=== PATIENT | female | born 1960 | race Caucasian/White ===

== ENCOUNTER 2017-09-23 02:17 | Inpatient (IN) | payer OTHER ==
[~2017-09-23] VITALS: Ht 152.4 cm; Wt 65.8 kg
[~2017-09-23 02:17] MED LIST: FISH OIL 1,001000 M2; FLEXERIL PO; IBUPROFEN 800800 M1 PO; PERCOCET 5-3251 EACH PO; PREDNISONE50 MG PO; SYNTHROID125 MC1 PO; VASOTEC20 MG PO
[2017-09-23 02:27] VITALS: BP 114/72
[2017-09-23 02:39] LABS: URINE BILIRUBIN NEGATIVE (Negative); URINE BLOOD 3+ (Negative); URINE CLARITY CLOUDY; URINE COLOR DARK YELLOW; URINE GLUCOSE-RANDOM NEGATIVE (Negative); URINE KETONES NEGATIVE (Negative); URINE LEUKOCYTES-REFLEX TRACE (Negative); URINE NITRITE-REFLEX NEGATIVE (Negative); URINE PROTEIN 1+ (Negative); URINE SPECIFIC GRAVITY >= 1.030 (1.005-1.030); URINE UROBILINOGEN 0.2 E.U./dl (0.2-1.0)
[2017-09-23 02:47] LABS: ABSOLUTE EOSINOPHILS 0.2 thou/uL (0.0-0.7); ABSOLUTE LYMPHOCYTES 3.1 thou/uL (0.8-5.3); ABSOLUTE MONOCYTES 0.4 thou/uL (0.0-1.2); ABSOLUTE NEUTROPHILS 2.3 thou/uL (1.6-8.1); BASOPHILS 0.7 %; EOSINOPHILS 2.7 %; HEMATOCRIT 43.3 % (37.0-47.0); HEMOGLOBIN 14.7 gm/dL (12.0-15.0); LYMPHOCYTES 51.3 %; MCHC 33.9 g/dL (28.0-37.0); MCV 91.2 fL (80.0-100.0); MONOCYTES 6.3 %; MPV 8.2 fl. (7.2-11.1); NUCLEATED RBCS 0 /100WBC; PLATELET COUNT* 235 thou/uL (150-400); RBC 4.75 mil/uL (4.20-5.00); RDW-CV 13.2 % (10.5-14.5)
[2017-09-23 02:51] LABS: ANION GAP 9 mmol/L (7-16); BUN 18 mg/dL (7-18); CALCIUM 8.7 mg/dL (8.5-10.1); CHLORIDE 101 mmol/L (98-107); CO2 30 mmol/L (21-32); CREATININE 1.1 mg/dL (0.6-1.3); GLUCOSE 108 mg/dL (70-99); SODIUM 140 mmol/L (136-145)
[2017-09-23 02:58] LABS: ALKALINE PHOSPHATASE 76 U/L (46-116); LIPASE 145 U/L (73-393); SGPT 24 U/L (30-65); TOTAL BILIRUBIN 0.8 mg/dL (<0.1-1.0); TOTAL PROTEIN 7.9 g/dL (6.4-8.2); TROPONIN-I LEVEL <0.06 ng/mL (<0.06)
[2017-09-23 02:59] LABS: POTASSIUM 4.8 mmol/L (3.5-5.1)
[2017-09-23 03:00] LABS: SGOT 48 U/L (15-37)
[2017-09-23 03:26] LABS: CASTS None Seen /LPF (None Seen); SQUAMOUS >10 Many /LPF (0-3)
[2017-09-23 03:27] LABS: BACTERIA-REFLEX >30 Many /HPF (None Seen); CRYSTALS None Seen /LPF (None Seen); URINE RBC >20 Many /HPF (0-2); URINE WBC-REFLEX 6-15 Few /HPF (0-5)
[2017-09-23 04:53] VITALS: BP 134/61
--- NOTE | 2017-09-23 04:55 | NUR ---
PT ADMITTED TO FLOOR PER CART ACCOMPANIED BY ER STAFF WITH BELONGINGS. ORIENTED TO ROOM AND CALL LITE. PT DROWSY BUT ORIENTED X4, HISTORY OBTAINED AND ASSESSMENT PERFORMED. PT STATES PAIN 4/10 AT PRESENT AND STARTING TO CLIMB, BECOMING RESTLESS IN BED WHILE ASSESSMENT PERFORMED, NAUSEA BRIEFLY WITHOUT EMESIS. TOO SOON FOR PAIN MED, WILL CONTINUE TO MONITOR. O2 2L 100% SAT. CALL LITE IN EASY REACH, IVF PLACED ON PUMP FOR INFUSION LAC. BED ALARM ON FOR SAFETY DUE TO PT DROWSINESS.
[2017-09-23 05:40] VITALS: BP 148/79
--- NOTE | 2017-09-23 07:55 | NUR ---
NEW ADMIT THIS SHIFT, PT SLEPT FOR AWHILE AFTER SETTLING IN AFTER MIDNIGHT AWAKENED THIS MORNING WITH PRETTY SUDDEN ONSET 9/10 L FLANK PAIN AND NAUSEA. DR LONG NOTIFIED AND ORDERS RECEIVED FOR ONE TIME DOSE DILAUDID 0.5MG IV WITH ZOFRAN-GIVEN. LAC IVF INFUSING PER PUMP. UP WITH ASSIST TO BSC TO VOID, URINE STRAINED. CALL LITE IN EASY REACH, BED ALARM ON FOR SAFETY AFTER IV PAIN MEDS GIVEN. O2 2L NC.UROLOGY TO CONSULT TODAY.
[2017-09-23 08:00] VITALS: BP 122/64
--- NOTE | 2017-09-23 13:29 | EKG ---
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 : 1960 Requested By: Willie Day Order Number: [id number] MD: Johnny Irizarry Measurements Intervals [place] Rate: 50 P: 52 [place]: 175 QRS: 65 QRSD: 102 T: 15 QT: 458 QTc: 418 Interpretive Statements Sinus arrhythmia Baseline wander in lead(s) V1,V2 No previous ECG available for comparison Electronically Signed On 09-23-2017 13:29:03 CDT by Johnny Irizarry [email or web address] <ELECTRONICALLY SIGNED> By: Kath Irizarry MD, [facility] 09/23/17 1329 025 0 Kath Irizarry MD, [facility] /EPI
[2017-09-23 16:21] VITALS: BP 128/57
--- NOTE | 2017-09-23 19:43 | NUR ---
ASSUMED CARE THIS AM. PAIN/NAUSEA FINALLY CONTROLLED WITH IV MEDICATION AND REST. PATIENT RESTED COMFORTABLY MOST OF THE AFTERNOON, AT BEDSIDE. PATIENT DID TOLERATE SUPPER WITHOUT EMESIS AND NAUSEA. NEIL IVF AND ABT WITHOUT INCIDENT, NPO AFTER MIDNIGHT, WILL CONT POC TOWARD D/C GOALS, URINE STRAINED.
[2017-09-23 20:30] VITALS: BP 103/59
[2017-09-24 00:05] VITALS: BP 110/62
[2017-09-24 04:16] VITALS: BP 114/60
--- NOTE | 2017-09-24 06:07 | NUR ---
PT HAD GOOD NIGHTS SLEEP SHE STATES, RECEIVED TORADOL AT START OF SHIFT FOR MILD L FLANK PAIN 2/10 WITH GOOD RESULT AND WAS ABLE TO SLEEP UNTIL AWAKENED WITH PAIN 5/10 L FLANK AT 0330. 1 MG DILAUDID GIVEN IV WITH GOOD RESULT. O2 SAT 89% AFTER DILAUDID, O2 2L PLACED ON PT. UP TO BR TO VOID, STRAINING URINE WITH NO STONE SEEN. HAS BEEN NPO SINCE MIDNIGHT IN CASE UROLOGIC PROCEDURE NEEDED. LAC IVF INFUSING PER PUMP, ABX TO BE GIVEN ORDERED. ABLE TO USE CALL LITE AND MAKE NEEDS KNOWN. NO LABS THIS MORNING, TO HAVE KUB TODAY. TELE SB/SR, VSS.
[2017-09-24 08:00] VITALS: BP 121/54
[2017-09-24 08:15] LABS: CALCIUM 7.9 mg/dL (8.5-10.1); CREATININE 1.8 mg/dL (0.6-1.3); POTASSIUM 4.5 mmol/L (3.5-5.1)
--- NOTE | 2017-09-24 10:40 | NUR ---
SW met with pt to complete initial assessment, introduce self and SW role. Pt alert and oriented. Pt name actually "Melvi". Pt lives at home with her . Pt was out of town on business but flew back to be with pt. Pt does not anticipate any dc needs except maybe help with coordinating OP appt by mobile clinic or "truck" if that is what is recommended. SW to continue to follow to assist with safe dc planning.
[2017-09-24] MEDS ORDERED: TAMSULOSIN HCL0.4 MG PO (12:08)
[2017-09-24] MEDS ORDERED: TRANSDERM-SCOP1 EACH TRANSDERM (12:13)
[2017-09-24] MEDS ORDERED: NORCO 5-325 TA1 EACH PO (12:14)
[2017-09-24] MEDS ORDERED: LIDODERM1 EACH TRANSDERM (12:16)
[2017-09-24 12:20] VITALS: BP 112/58
--- NOTE | 2017-09-24 17:58 | EKG ---
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 : 1960 Requested By: Clay Jerry Order Number: [id number] Reading MD: Anish Adkins Measurements Intervals [place] Rate: 51 P: 22 [place]: 155 QRS: 66 QRSD: 96 T: -9 QT: 430 QTc: 397 Interpretive Statements Sinus rhythm Borderline T abnormalities, inferior leads Compared to ECG 09/23/2017 02:51:14 T-wave abnormality now present Sinus arrhythmia no longer present Electronically Signed On 09-24-2017 17:58:34 CDT by Anish Adkins [email or web address] <ELECTRONICALLY SIGNED> By: Anish Adkins MD, FACC 09/24/17 1758 0949 0949 Anish Adkins MD, FAC /EPI
[2017-09-25] MEDS ORDERED: BACTRIM DS TAB1 EACH (19:03)
[2017-09-25] MEDS ORDERED: PROAIR HFA8.5 GM INH (21:18)
[2017-09-25] MEDS ORDERED: AZITHROMYCIN 2250 MG PO (21:18)
[2017-09-25] MEDS ORDERED: DIFLUCAN150 MG PO (21:18)
== END 2017-09-24 17:29 | disposition home or self-care (01) | DRG 694 ==
LOC: M.ERS 02:17 → M.3W 04:17 → M.TBA-ER 04:17 → M.3W 04:56
PROVIDERS: Emergency Medicine Emergency Medical Services; Urology; ADMIT Family Medicine
DX: N20.2 Calculus of kidney with calculus of ureter (principal); I10 Essential (primary) hypertension; E03.9 Hypothyroidism, unspecified; J45.909 Unspecified asthma, uncomplicated; Z79.899 Other long term (current) drug therapy

== ENCOUNTER 2017-09-25 18:43 | Emergency (ER) | payer OTHER ==
[~2017-09-25] VITALS: Ht 154.9 cm; Wt 59.0 kg
[~2017-09-25 18:43] MED LIST changes: +LIDODERM1 EACH TRANSDERM; +NORCO 5-325 TA1 EACH PO; +TAMSULOSIN HCL0.4 MG PO; +TRANSDERM-SCOP1 EACH TRANSDERM
[2017-09-25] MEDS ORDERED: BACTRIM DS TAB1 EACH (19:03)
[2017-09-25 19:36] LABS: URINE BILIRUBIN NEGATIVE (Negative); URINE BLOOD 3+ (Negative); URINE CLARITY CLEAR; URINE COLOR YELLOW; URINE GLUCOSE-RANDOM NEGATIVE (Negative); URINE KETONES NEGATIVE (Negative); URINE LEUKOCYTES-REFLEX NEGATIVE (Negative); URINE NITRITE-REFLEX NEGATIVE (Negative); URINE PROTEIN NEGATIVE (Negative); URINE SPECIFIC GRAVITY 1.015 (1.005-1.030); URINE UROBILINOGEN 0.2 E.U./dl (0.2-1.0)
[2017-09-25 19:43] LABS: ABSOLUTE EOSINOPHILS 0.1 thou/uL (0.0-0.7); ABSOLUTE LYMPHOCYTES 1.8 thou/uL (0.8-5.3); ABSOLUTE MONOCYTES 0.4 thou/uL (0.0-1.2); ABSOLUTE NEUTROPHILS 3.1 thou/uL (1.6-8.1); BASOPHILS 0.5 %; EOSINOPHILS 2.3 %; LYMPHOCYTES 32.9 %; MCH 31.5 pg (26.0-34.0); MCHC 34.9 g/dL (28.0-37.0); MCV 90.2 fL (80.0-100.0); MONOCYTES 7.4 %; NUCLEATED RBCS 0 /100WBC; PLATELET COUNT* 178 thou/uL (150-400); POLYS 56.9 %; RBC 3.77 mil/uL (4.20-5.00); RDW-CV 12.8 % (10.5-14.5); WBC 5.5 thou/uL (4.0-11.0)
[2017-09-25 19:44] LABS: SQUAMOUS >10 Many /LPF (0-3)
[2017-09-25 19:45] LABS: BACTERIA-REFLEX 1-9 Few /HPF (None Seen); CRYSTALS None Seen /LPF (None Seen); MUCUS None Seen strn/LPF (None Seen)
[2017-09-25 19:46] LABS: CASTS None Seen /LPF (None Seen); URINE WBC-REFLEX 0-5 Rare /HPF (0-5)
[2017-09-25 19:52] LABS: HEMOGLOBIN 11.9 gm/dL (12.0-15.0)
[2017-09-25 19:54] LABS: CALCIUM 8.4 mg/dL (8.5-10.1); CREATININE 1.1 mg/dL (0.6-1.3); POTASSIUM 3.7 mmol/L (3.5-5.1)
[2017-09-25 19:59] LABS: ALBUMIN 2.8 g/dL (3.4-5.0); TOTAL BILIRUBIN 0.4 mg/dL (<0.1-1.0); TOTAL PROTEIN 5.8 g/dL (6.4-8.2)
[2017-09-25] MEDS ORDERED: AZITHROMYCIN 2250 MG PO (21:18)
[2017-09-25] MEDS ORDERED: DIFLUCAN150 MG PO (21:18)
[2017-09-25] MEDS ORDERED: PROAIR HFA8.5 GM INH (21:18)
[2017-09-25 21:40] VITALS: BP 151/50
== END 2017-09-25 21:40 | disposition home or self-care (01) ==
LOC: M.ERS 18:43
PROVIDERS: Emergency Medicine
DX: J18.9 Pneumonia, unspecified organism (principal); J45.909 Unspecified asthma, uncomplicated; I10 Essential (primary) hypertension; E07.9 Disorder of thyroid, unspecified; Z87.442 Personal history of urinary calculi

== ENCOUNTER 2020-03-31 | Emergency (ER) | payer OTHER ==
[~2020-03-31] VITALS: Ht 154.9 cm; Wt 56.7 kg
[~2020-03-31] MED LIST changes: +AZITHROMYCIN 2250 MG PO; +BACTRIM DS TAB1 EACH; +DIFLUCAN150 MG PO; +PROAIR HFA8.5 GM INH
[2020-03-31 00:30] LABS: ABSOLUTE LYMPHOCYTES 0.9 thou/uL (0.8-5.3); ABSOLUTE MONOCYTES 0.8 thou/uL (0.0-1.2); ABSOLUTE NEUTROPHILS 8.4 thou/uL (1.6-8.1); BASOPHILS 0.2 %; EOSINOPHILS 0.1 %; HEMATOCRIT 28.7 % (37.0-47.0); HEMOGLOBIN 9.7 gm/dL (12.0-15.0); LYMPHOCYTES 8.7 %; MCH 30.5 pg (26.0-34.0); MCHC 33.9 g/dL (28.0-37.0); MONOCYTES 7.6 %; MPV 7.6 fl. (7.2-11.1); NUCLEATED RBCS 0 /100WBC; PLATELET COUNT* 232 thou/uL (150-400); POLYS 83.4 %; RBC 3.19 mil/uL (4.20-5.00); RDW-CV 13.3 % (10.5-14.5)
[2020-03-31 00:38] LABS: CALCIUM 7.9 mg/dL (8.5-10.1); CREATININE 1.1 mg/dL (0.6-1.3); POTASSIUM 4.5 mmol/L (3.5-5.1)
[2020-03-31 00:41] LABS: APTT 18.6 Seconds (25.0-31.3); INR 1.1; PROTIME 11.5 Seconds (9.20-11.50)
[2020-03-31 00:43] LABS: ALBUMIN 2.8 g/dL (3.4-5.0); TOTAL BILIRUBIN 0.4 mg/dL (<0.1-1.0); TOTAL PROTEIN 5.7 g/dL (6.4-8.2)
[2020-03-31] MEDS ORDERED: ZOFRAN ODT4 MG SUBLING (00:55)
[2020-03-31 01:10] VITALS: BP 107/67
== END 2020-03-31 01:10 | disposition home or self-care (01) ==
LOC: M.ERS
PROVIDERS: Family Medicine
DX: S30.1XXA Contusion of abdominal wall, initial encounter (principal); L76.21 Postprocedural hemorrhage of skin and subcutaneous tissue following a dermatologic procedure; D64.9 Anemia, unspecified; G89.18 Other acute postprocedural pain; J45.909 Unspecified asthma, uncomplicated; Z87.442 Personal history of urinary calculi; Y83.8 Other surgical procedures as the cause of abnormal reaction of the patient, or of later complication, without mention of misadventure at the time of the procedure; Y82.8 Other medical devices associated with adverse incidents; X58.XXXA Exposure to other specified factors, initial encounter; Y93.89 Activity, other specified; Y92.89 Other specified places as the place of occurrence of the external cause; Y99.8 Other external cause status